=== PATIENT | male | born 1990 | race Caucasian/White ===

== ENCOUNTER 2019-05-31 14:31 | Observation (INO) ==
[2019-05-31] MEDS ORDERED: 0.9 % Sodium Chloride 1,000 ML IVC ONE (14:53)
[2019-05-31] MEDS ORDERED: diazePAM 10 MG/2 ML SYRINGE IVP STA ×2 (14:53→15:58)
[2019-05-31] MEDS ORDERED: *HR* Midazolam HCl 2 MG/2 ML VIAL IVP ONE (14:53)
[2019-05-31 16:50] LABS: Basophils # 0.1 K/mcL (0.0-0.2); Basophils % 0.4 %; Eosinophils # 0.1 K/mcL (0.0-0.6); Eosinophils % 0.4 %; Hematocrit 51.5 % (37.5-50.1); Hemoglobin 17.9 g/dL (12.9-16.9); Immature Granulocytes % 0.7 % (0-4); Lymphocytes # 1.4 K/mcL (0.6-4.6); Lymphocytes % 9.9 %; Mean Corpuscular HGB Conc 34.8 g/dL (31.6-35.5); Mean Corpuscular Hemoglobin 31.2 pg (28.0-33.3); Mean Corpuscular Volume 89.7 fL (83.0-100.0); Mean Platelet Volume 9.4 fL (9.4-12.4); Monocytes # 0.8 K/mcL (0.0-1.3); Monocytes % 5.8 %; Neutrophils # 11.6 K/mcL (1.6-8.9); Platelet Count 320 K/mcL (140-400); Red Blood Count 5.74 M/mcL (4.19-5.50); Red Cell Distribution Width 13.2 % (11.5-14.5); Segmented Neutrophils % 82.8 %
[2019-05-31] MEDS ORDERED: *HR* LORazepam 2 MG/ML VIAL IVP PRN ×3 (16:52→18:38)
[2019-05-31] MEDS ORDERED: 0.9 % Sodium Chloride 1,000 ML IVC STA (16:55)
[2019-05-31 17:12] LABS: BUN/Creatinine Ratio 16 (6-26); Blood Urea Nitrogen 13 mg/dL (6-20); Carbon Dioxide 24 mEq/L (23-29); Chloride 98 mEq/L (98-107); Glucose 99 mg/dL (70-105); Osmolality,Calculated 282 (280-300); Potassium 4.6 mEq/L (3.5-5.1); Sodium 136 mEq/L (136-145); eGFR For African Americans > 60 (> 60); eGFR For Non-African Americans > 60 (> 60)
[2019-05-31] MEDS ORDERED: traZODone 50 MG TABLET PO PRN (18:37)
[2019-05-31] MEDS ORDERED: *HR* Promethazine 25 MG/ML VIAL IVP PRN (18:38)
[2019-05-31] MEDS ORDERED: Ringers Solution, Lactated 1,000 ML IVC ONE (18:40)
[2019-05-31] MEDS ORDERED: Naloxone 0.4 MG/ML INJ IVP PRN (18:41)
[2019-05-31] MEDS ORDERED: Ondansetron ODT 4 MG TAB.RAPDIS SL PRN (18:41)
[2019-05-31 19:02] LABS: Magnesium 1.7 mg/dL (1.6-2.6); Phosphorous 2.4 mg/dL (2.7-4.5)
[2019-05-31] MEDS: *HR* LORazepam 2 MG/ML VIAL IVP PRN ×2 (20:51→22:58)
[2019-05-31] MEDS: BuPROPion XL (24 HR) 150 MG TABLET PO SCH (22:47)
[2019-05-31] MEDS: Thiamine (B-1) 100 MG TABLET PO SCH (22:47)
[2019-05-31] MEDS: Vitamin B Complex/Vit C/Vit E 1 EACH TABLET PO SCH (22:48)
[2019-06-01] MEDS: Nicotine 2 MG GUM BC SCH ×5 (05:29→11:43)
[2019-06-01] MEDS: Vitamin B Complex/Vit C/Vit E 1 EACH TABLET PO SCH (08:09)
[2019-06-01] MEDS: Thiamine (B-1) 100 MG TABLET PO SCH (08:09)
[2019-06-01] MEDS: BuPROPion XL (24 HR) 150 MG TABLET PO SCH (08:09)
[2019-06-01 09:30] LABS: BUN/Creatinine Ratio 14 (6-26); Blood Urea Nitrogen 11 mg/dL (6-20); Calcium 9.2 mg/dL (8.6-10.3); Carbon Dioxide 30 mEq/L (23-29); Chloride 101 mEq/L (98-107); Glucose 102 mg/dL (70-105); Magnesium 1.8 mg/dL (1.6-2.6); Osmolality,Calculated 290 (280-300); Phosphorous 3.6 mg/dL (2.7-4.5); Potassium 4.2 mEq/L (3.5-5.1); Sodium 140 mEq/L (136-145); eGFR For African Americans > 60 (> 60); eGFR For Non-African Americans > 60 (> 60)
[2019-06-01 11:08] VITALS: BP 144/96
[2019-06-01] MEDS: *HR* LORazepam 2 MG/ML VIAL IVP PRN (11:36)
== END 2019-06-01 13:27 | disposition left against medical advice (07) ==
LOC: EMEROOARM 14:31 → 2ANU 14:31 → SUATTDRO 20:13 → 2ANU 20:59
PROVIDERS: ADMIT Internal Medicine; ATTEND Internal Medicine

== ENCOUNTER 2019-06-04 16:50 | Observation (INO) ==
[2019-06-04] MEDS ORDERED: 0.9 % Sodium Chloride 1,000 ML IVC ONE (17:25)
[2019-06-04] MEDS ORDERED: Ondansetron 4 MG/2 ML VIAL IVP ONE (17:35)
[2019-06-04] MEDS ORDERED: *HR* LORazepam 2 MG/ML VIAL IVP ONE ×2 (17:35→20:10)
[2019-06-04 17:37] LABS: VBG HCO3 25 mEq/L (21-27); VBG PCO2 40 mmHg (41-51); VBG PH 7.41 pH Units (7.32-7.42); VBG PO2 105 mmHg (25-50)
[2019-06-04 17:56] LABS: Basophils # 0.1 K/mcL (0.0-0.2); Basophils % 0.5 %; Eosinophils # 0.3 K/mcL (0.0-0.6); Eosinophils % 2.2 %; Hemoglobin 17.7 g/dL (12.9-16.9); Immature Granulocytes % 0.5 % (0-4); Lymphocytes # 2.9 K/mcL (0.6-4.6); Lymphocytes % 24.9 %; Mean Corpuscular HGB Conc 35.4 g/dL (31.6-35.5); Mean Corpuscular Hemoglobin 31.7 pg (28.0-33.3); Mean Corpuscular Volume 89.4 fL (83.0-100.0); Mean Platelet Volume 9.6 fL (9.4-12.4); Monocytes # 1.1 K/mcL (0.0-1.3); Monocytes % 9.6 %; Neutrophils # 7.2 K/mcL (1.6-8.9); Platelet Count 383 K/mcL (140-400); Red Blood Count 5.59 M/mcL (4.19-5.50); Segmented Neutrophils % 62.3 %; White Blood Count 11.6 K/mcL (4.3-11.1)
[2019-06-04 18:10] LABS: Alanine Aminotransferase 54 Units/L (7-52); Albumin 4.9 g/dL (3.5-5.7); Albumin/Globulin Ratio 1.4 (1.1-2.2); Alkaline Phosphatase 75 Units/L (34-104); Aspartate Amino Transferase 57 Units/L (13-39); BUN/Creatinine Ratio 12 (6-26); Bilirubin,Direct 0.1 mg/dL (0.0-0.2); Bilirubin,Indirect 0.4 mg/dL (0.0-1.0); Bilirubin,Total 0.5 mg/dL (0.3-1.0); Blood Urea Nitrogen 12 mg/dL (6-20); Calcium 9.9 mg/dL (8.6-10.3); Carbon Dioxide 22 mEq/L (23-29); Chloride 103 mEq/L (98-107); Ethanol 14 mg/dL (Less than 10); Globulin 3.4 g/dL (2.4-3.5); Glucose 102 mg/dL (70-105); Osmolality,Calculated 288 (280-300); Potassium 4.2 mEq/L (3.5-5.1); Sodium 139 mEq/L (136-145); Total Protein 8.3 g/dL (6.4-8.9); eGFR For African Americans > 60 (> 60); eGFR For Non-African Americans > 60 (> 60)
[2019-06-04 18:15] LABS: Lipase 14 Units/L (11-82)
[2019-06-04 18:28] LABS: Acetaminophen < 10 mcg/mL (10-20); Salicylate < 2.5 mg/dL (15.0-30.0)
[2019-06-04 19:16] LABS: Bilirubin,Urine Small (Negative); Blood,Urine Negative (Negative); Clarity,Urine Clear (Clear); Color,Urine Dark Yellow (Yellow); Glucose,Urine (UA) Normal (Normal); Ketones,Urine Negative (Negative); Leukocyte Esterase,Urine Negative (Negative); Nitrite,Urine Negative (Negative); PH,Urine 5.5 pH Units (5.0-8.0); Protein,Urine 100 mg/dL (Neg-Trace); Specific Gravity,Urine > 1.030 (1.010-1.025); Urobilinogen,Urine Normal (Normal)
[2019-06-04 19:18] LABS: Bacteria,Urine None Seen per hpf (None-Few); Hyaline Casts,Urine Few per lpf (None-Few); Squamous Epithelial Cell,Urine Many per lpf (None-Few); WBC,Urine 0-3 per hpf (0-3)
[2019-06-04 19:26] LABS: Amphetamine Screen,Urine Negative ng/mL (Cutoff=1000); Barbiturate Screen,Urine Negative ng/mL (Cutoff=200); Benzodiazepines Screen,Urine Positive ng/mL (Cutoff=200); Cannabinoid Screen,Urine Positive ng/mL (Cutoff = 50); Cocaine Screen,Urine Negative ng/mL (Cutoff= 300); Opiate Screen,Urine Negative ng/mL (Cutoff=300); Phencyclidine Screen,Urine Negative ng/mL (Cutoff=25)
[2019-06-04] MEDS ORDERED: Naloxone 0.4 MG/ML INJ IVP PRN ×2 (21:44→23:27)
[2019-06-04] MEDS ORDERED: *HR* LORazepam 2 MG/ML VIAL IVP PRN (22:53)
[2019-06-04] MEDS: Ondansetron 4 MG/2 ML VIAL IVP PRN (23:20)
[2019-06-04] MEDS: *HR* LORazepam 2 MG/ML VIAL IVP PRN (23:20)
[2019-06-04] MEDS: traZODone 50 MG TABLET PO PRN (23:25)
[2019-06-05] MEDS: Thiamine (B-1) 100 MG TABLET PO SCH (09:18)
[2019-06-05] MEDS: Multivit/Ca/Min/Fe/FA 1 TAB TABLET PO SCH (09:18)
[2019-06-05] MEDS: BuPROPion XL (24 HR) 150 MG TABLET PO SCH (09:18)
[2019-06-05] MEDS: *HR* LORazepam 2 MG/ML VIAL IVP PRN ×5 (11:36→22:37)
[2019-06-05] MEDS: Ondansetron 4 MG/2 ML VIAL IVP PRN (11:40)
[2019-06-05 14:11] LABS: Hepatitis B Surface Antigen Nonreactive (Nonreactive)
[2019-06-05 14:41] LABS: Hepatitis B Core IgM Nonreactive (Nonreactive)
[2019-06-05 14:42] LABS: Hepatitis A Antibody IgM Nonreactive (Nonreactive); Hepatitis C Virus Antibody Nonreactive (Nonreactive)
[2019-06-05] MEDS ORDERED: *HR* LORazepam 2 MG/ML VIAL IVP PRN ×2 (15:37)
[2019-06-05] MEDS: traZODone 50 MG TABLET PO PRN (22:41)
[2019-06-06] MEDS: *HR* LORazepam 2 MG/ML VIAL IVP PRN (01:10)
[2019-06-06 06:47] VITALS: BP 114/68
[2019-06-06] MEDS: Thiamine (B-1) 100 MG TABLET PO SCH (08:04)
[2019-06-06] MEDS: BuPROPion XL (24 HR) 150 MG TABLET PO SCH (08:04)
[2019-06-06] MEDS: Multivit/Ca/Min/Fe/FA 1 TAB TABLET PO SCH (08:05)
[2019-06-06 09:12] LABS: Basophils % 0.6 %; Eosinophils # 0.2 K/mcL (0.0-0.6); Eosinophils % 2.3 %; Hematocrit 42.4 % (37.5-50.1); Immature Granulocytes % 0.4 % (0-4); Lymphocytes % 28.6 %; Mean Corpuscular Hemoglobin 31.8 pg (28.0-33.3); Mean Platelet Volume 9.9 fL (9.4-12.4); Monocytes # 0.5 K/mcL (0.0-1.3); Monocytes % 7.2 %; Neutrophils # 4.2 K/mcL (1.6-8.9); Platelet Count 207 K/mcL (140-400); Red Cell Distribution Width 13.2 % (11.5-14.5); Segmented Neutrophils % 60.9 %
[2019-06-06 09:13] LABS: Mean Corpuscular Volume 96.4 fL (83.0-100.0)
[2019-06-06 09:32] LABS: Alanine Aminotransferase 34 Units/L (7-52); Albumin 3.9 g/dL (3.5-5.7); Albumin/Globulin Ratio 1.5 (1.1-2.2); Alkaline Phosphatase 53 Units/L (34-104); Aspartate Amino Transferase 24 Units/L (13-39); BUN/Creatinine Ratio 12 (6-26); Bilirubin,Total 0.4 mg/dL (0.3-1.0); Blood Urea Nitrogen 10 mg/dL (6-20); Carbon Dioxide 31 mEq/L (23-29); Chloride 103 mEq/L (98-107); Globulin 2.6 g/dL (2.4-3.5); Glucose 102 mg/dL (70-105); Osmolality,Calculated 285 (280-300); Potassium 3.7 mEq/L (3.5-5.1); Sodium 138 mEq/L (136-145); Total Protein 6.5 g/dL (6.4-8.9); eGFR For African Americans > 60 (> 60); eGFR For Non-African Americans > 60 (> 60)
== END 2019-06-06 11:32 | disposition home or self-care (01) ==
LOC: 3BNU 16:50 → EMEROOARM 16:50 → 3BNU 21:51
PROVIDERS: ADMIT Internal Medicine; ATTEND Internal Medicine

== ENCOUNTER 2019-06-14 12:23 | Inpatient (IN) ==
[2019-06-14 13:04] LABS: Bilirubin,Urine Negative (Negative); Blood,Urine Negative (Negative); Clarity,Urine Clear (Clear); Color,Urine Yellow (Yellow); Glucose,Urine (UA) Normal (Normal); Ketones,Urine Trace mg/dL (Negative); Leukocyte Esterase,Urine Negative (Negative); Nitrite,Urine Negative (Negative); Protein,Urine Negative (Neg-Trace); Specific Gravity,Urine > 1.030 (1.010-1.025); Urobilinogen,Urine Normal (Normal)
[2019-06-14 13:04] LABS: Basophils % 0.3 %; Eosinophils # 0.2 K/mcL (0.0-0.6); Eosinophils % 1.9 %; Hematocrit 44.3 % (37.5-50.1); Hemoglobin 15.7 g/dL (12.9-16.9); Immature Granulocytes % 0.8 % (0-4); Lymphocytes # 2.9 K/mcL (0.6-4.6); Mean Corpuscular HGB Conc 35.4 g/dL (31.6-35.5); Mean Corpuscular Hemoglobin 31.9 pg (28.0-33.3); Mean Platelet Volume 9.4 fL (9.4-12.4); Monocytes # 0.7 K/mcL (0.0-1.3); Monocytes % 7.7 %; Neutrophils # 5.4 K/mcL (1.6-8.9); Platelet Count 277 K/mcL (140-400); Red Blood Count 4.92 M/mcL (4.19-5.50); Red Cell Distribution Width 13.2 % (11.5-14.5); Segmented Neutrophils % 58.3 %; White Blood Count 9.3 K/mcL (4.3-11.1)
[2019-06-14 13:12] LABS: Amphetamine Screen,Urine Negative ng/mL (Cutoff=1000); Barbiturate Screen,Urine Negative ng/mL (Cutoff=200); Benzodiazepines Screen,Urine Positive ng/mL (Cutoff=200); Cannabinoid Screen,Urine Positive ng/mL (Cutoff = 50); Cocaine Screen,Urine Negative ng/mL (Cutoff= 300); Opiate Screen,Urine Negative ng/mL (Cutoff=300); Phencyclidine Screen,Urine Negative ng/mL (Cutoff=25)
[2019-06-14 13:22] LABS: Acetaminophen < 10 mcg/mL (10-20); BUN/Creatinine Ratio 11 (6-26); Blood Urea Nitrogen 8 mg/dL (6-20); Calcium 8.7 mg/dL (8.6-10.3); Carbon Dioxide 23 mEq/L (23-29); Chloride 106 mEq/L (98-107); Ethanol 284 mg/dL (Less than 10); Glucose 126 mg/dL (70-105); Osmolality,Calculated 290 (280-300); Potassium 3.7 mEq/L (3.5-5.1); Salicylate < 2.5 mg/dL (15.0-30.0); Sodium 140 mEq/L (136-145); eGFR For African Americans > 60 (> 60); eGFR For Non-African Americans > 60 (> 60)
[2019-06-14] MEDS ORDERED: *HR* LORazepam 1 MG TABLET PO ONE (15:03)
[2019-06-14] MEDS ORDERED: *HR* LORazepam 2 MG/ML VIAL IVP PRN (23:39)
[2019-06-15] MEDS ORDERED: *HR* LORazepam 2 MG/ML VIAL IVP ONE (00:06)
[2019-06-15] MEDS: *HR* LORazepam 2 MG/ML VIAL IVP PRN ×4 (03:47→19:23)
[2019-06-15] MEDS ORDERED: Ondansetron 4 MG/2 ML VIAL IVP PRN (07:29)
[2019-06-15] MEDS: Nicotine 14 MG PATCH.TD24 TD SCH (08:55)
[2019-06-16] MEDS: traZODone 50 MG TABLET PO PRN ×2 (01:47→23:22)
[2019-06-16] MEDS: *HR* LORazepam 2 MG/ML VIAL IVP PRN ×5 (01:47→19:52)
[2019-06-16] MEDS: Thiamine (B-1) 100 MG TABLET PO SCH (07:39)
[2019-06-16] MEDS: Nicotine 14 MG PATCH.TD24 TD SCH (07:40)
[2019-06-16] MEDS ORDERED: Multivit/Ca/Min/Fe/FA 1 TAB TABLET PO SCH (09:00)
[2019-06-16] MEDS ORDERED: BuPROPion XL (24 HR) 150 MG TABLET PO SCH (09:00)
[2019-06-17 02:15] LABS: Mean Corpuscular HGB Conc 34.3 g/dL (31.6-35.5); Mean Corpuscular Hemoglobin 32.3 pg (28.0-33.3); Mean Corpuscular Volume 94.3 fL (83.0-100.0); Mean Platelet Volume 9.7 fL (9.4-12.4); Platelet Count 209 K/mcL (140-400); Red Blood Count 4.24 M/mcL (4.19-5.50); Red Cell Distribution Width 12.8 % (11.5-14.5); White Blood Count 8.3 K/mcL (4.3-11.1)
[2019-06-17 02:16] LABS: Hemoglobin 13.7 g/dL (12.9-16.9)
[2019-06-17] MEDS: *HR* LORazepam 2 MG/ML VIAL IVP PRN ×2 (02:16→16:20)
[2019-06-17 02:36] LABS: BUN/Creatinine Ratio 15 (6-26); Blood Urea Nitrogen 11 mg/dL (6-20); Calcium 8.9 mg/dL (8.6-10.3); Carbon Dioxide 24 mEq/L (23-29); Chloride 105 mEq/L (98-107); Glucose 141 mg/dL (70-105); Magnesium 1.8 mg/dL (1.6-2.6); Osmolality,Calculated 288 (280-300); Potassium 3.5 mEq/L (3.5-5.1); Sodium 138 mEq/L (136-145); eGFR For African Americans > 60 (> 60); eGFR For Non-African Americans > 60 (> 60)
[2019-06-17] MEDS: Multivit/Ca/Min/Fe/FA 1 TAB TABLET PO SCH (08:44)
[2019-06-17] MEDS: Thiamine (B-1) 100 MG TABLET PO SCH (08:45)
[2019-06-17] MEDS: BuPROPion XL (24 HR) 150 MG TABLET PO SCH (08:45)
[2019-06-17] MEDS: Nicotine 14 MG PATCH.TD24 TD SCH ×2 (08:46→09:42)
[2019-06-17] MEDS ORDERED: Acetaminophen 325 MG TABLET PO PRN (10:23)
[2019-06-17] MEDS: traZODone 50 MG TABLET PO PRN (21:43)
[2019-06-18 06:40] VITALS: BP 135/81
[2019-06-18] MEDS: BuPROPion XL (24 HR) 150 MG TABLET PO SCH (08:38)
[2019-06-18] MEDS: Thiamine (B-1) 100 MG TABLET PO SCH (08:39)
[2019-06-18] MEDS: Multivit/Ca/Min/Fe/FA 1 TAB TABLET PO SCH (08:39)
[2019-06-18] MEDS: Nicotine 14 MG PATCH.TD24 TD SCH (08:40)
== END 2019-06-18 09:26 | disposition home or self-care (01) | DRG 773 ==
LOC: EMEROOARM 12:23 → 3BNU 12:23 → SUATTDRO 06-15 12:10
PROVIDERS: ADMIT Internal Medicine; ATTEND Internal Medicine